=== PATIENT | female | born 1990 | race Caucasian/White ===

== ENCOUNTER 2024-10-18 10:21 | Outpatient (AMB) | payer BC, SELFPAY ==
--- NOTE | 2024-10-18 10:33 | AMB.GYNCLNOT ---
Vital Signs 10/18/24 10:34 Height 1.7 m Height Method Measured Weight 118.047 kg Weight Measurement Method Standing Scale BMI 40.7 BP 150/97 H Blood Pressure Source Automatic Cuff Blood Pressure Location Right Lower Arm Position Sitting Respiration 17 Pulse 80 Pulse Source Monitor Temp 97.8 F Temp Source Temporal Artery Scan Pulse Oximetry (%) 98 Oxygen Delivery Method Room Air Allergies/Home Meds Allergies & Medications Allergies amoxicillin Allergy (Verified 10/18/24 10:36) Medication Reconciliation clobetasol 0.05 % topical ointment 1 applic topical QHS 4 weeks #60 grams 10/21/24 [Rx] fluconazole 150 mg tablet 150 mg PO QWEEK 6 weeks #6 tabs 10/21/24 [Rx] Intake Visit Data Collection New Patient or Established: New Patient (never been to [facility]) 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 Consent obtained for Telemed Visit: No Seen by Clinical Staff ONLY (RN/MA): No Edge Trimmer Required: No Do You Feel Safe at Home: Yes Authorities Contacted: N/A PCP or OBGYN visit in last 3 months: No Hx Now: No Are you currently on any form of Control: No Last menstrual period: 08/27/24 Pain Present Currently: No Pain Scale Used: Welsh-[place]/Numerical Pain scale:: 0 Smoking Status Smoking Status: Never smoker 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 Was 318 pounds now 260 pounds. Current BMI of 41. PCOS per patient History of abnormal Pap per patient History of anxiety Questionnaires Covid-19 Vaccine Questionnaire Has patient been vacinated for Covid-19 Have you been vacinated for Covid-19: No PHQ-9 PHQ-2 Over the last 2 weeks, how often have you been bothered by any of the following problems? 1. Little interest or pleasure in doing things: not at all 2. Feeling down, depressed, or hopeless: not at all Total score: 0 PHQ-9 3. Trouble falling or staying asleep, or sleeping too much: Not at all 4. Feeling tired or having little energy: Not at all 5. Poor appetite or overeating: Not at all 6. Feeling bad about yourself - or that you are a failure or have let yourself or your family down: Not at all 7. Trouble concentrating on things, such as reading the newspaper or watching television: Not at all 8. Moving or speaking so slowly that other people could have noticed? - Or the opposite - being so fidgety or restless that you have been moving around a lot more than usual: not at all 9. Thoughts that you would be better off or of hurting yourself in some way: Not at all Total score: 0 If you checked off any problems, how difficult have these problems made it for you to do your work, take care of things at home, or get along with other people?: not difficult at all Source: Developed by Drs. Elder Patel, Yulia Lopez, Jose Martin Galeana and colleagues, with an educational marina from [employer]. Depression screen completed yes Social History Living Situation History Marital Status: Lives With: Family Housing: House Tobacco History Smoking Status: Never smoker Alcohol History Alcohol Intake: Never Domestic Abuse History Do You Feel Safe at Home: Yes History of Present Illness HPI Narrative The patient is a 34-year-old G0 presents as a new patient for an annual exam. She was to see Dr. Marcos in [place]. I have no records available to review today. She states that her vaginal area is always uncomfortable . She states that she had a bladder infection that lasted a long time. She was having some abdominal pain and went to the ER and the doctor put her on an antibiotic for an extended period of time. She does use baby wipes when she goes to the restroom. She states her bottom itches and li. They are not using anything for contraception but patient does not want to get . She declines control pills or other forms of contraception. She is not sure if she ever wants to have a baby. She is not sure if her does either. She was diagnosed with PCOS in high school. She states her last period was August 27 and lasted 6 days and that her cycles are irregular. She states her last Pap was in May 14. She states she did have an abnormal Pap in the past she did not elaborate and I do not have any records. She stated that she has lost weight with diet and exercise and she was 318 pounds, today she is today she is 260 pounds. She does have a family history of breast cancer in a maternal grandmother and a maternal great grandmother her mother does not have breast cancer. Patient states she has had a mammogram in the past and it was normal. Again I have no records. Menstrual character: irregular in timing Gynecologic pain symptoms: Reports other (Vaginal discomfort) Menopause concerns/symptoms: Reports none Other pertinent information: The patient states she has PCOS and always has irregular cycles. They are not heavy or painful. Review of Systems Review of Systems Narrative Review of Systems: The patient denies hot flashes or night sweats. She denies dysuria. She reports vaginal pain and discomfort. No specific itching. No discharge. No foul odor. She has irregular cycles and states she has since high school secondary to PCOS. Exam General Limitations: no limitations General Appearance: alert, in no apparent distress, comfortable, cooperative, well groomed and obese Neck Neck exam: Present normal inspection, full ROM and trachea midline Chest Chest inspection: Present normal inspection and symmetric chest wall rise Exp Chest Breast: bilateral: other (Normal breast exam bilaterally) Resp Respiratory exam: Present normal lung sounds bilaterally Card Cardiovascular exam: Present regular rate, normal rhythm and normal heart sounds Abdominal Abdominal exam: Present soft and normal bowel sounds External exam: Present normal external exam, erythema and other (Erythema around her labia majora) Speculum exam: Present normal speculum exam and vaginal discharge (White vaginal discharge noted with no odor) Bimanual exam: Present normal bimanual exam (Uterus midline, nontender, not enlarged. No adnexal masses are palpated.) Psych Psychiatric exam: Present normal affect and normal mood Skin Skin exam: Present warm, dry, intact and normal color Office Procedures OB Clinic LOC & Office Proc's Nursing/Assessment Patient Status: Initial/New Patient OB Clinic Nursing Assessment: Medication Reconciliation, Update PMH in EMR and Vital Signs OB Clinic Coordination of Care: Complex Care and Chronic Disease 1-5, Consent,records obtained, informed consent, Lab and Imaging orders and Staff clarify orders New Patient Charge New Patient Point Assignment: [id number] New Patient Point Charge: HYDRAULIC DESIGN ENGINEER Level 3 ([id number]) In Clinic Procedures Pap Smear: Yes Assessment & Plan Diagnosis / Problem List (1) Encounter for Routine Gynecological Examination: Qualifiers: Gynecological examination findings: abnormal findings ABSENT Qualified Code(s): Z01.419 - Encounter for gynecological examination (general) (routine) without abnormal findings Assessment and Plan: Pap high risk HPV performed breast exam done and encouraged (2) Yeast vaginitis: Status: Acute Assessment and Plan: Diflucan 150 mg p.o. x 1 with about 12 refills given (3) Lichen sclerosus of vulva: Status: Acute Assessment and Plan: Clobetasol ointment to vulva encourage deep crease or complete cessation of use of baby wipes or other types of vaginal cleaning products besides soap and water once a day. Discouraged use of pantiliners daily. (4) Morbid obesity with BMI of 40.0-44.9, adult: Status: Acute Assessment and Plan: Encourage patient to continue to exercise and diet in order to lose weight. (5) History of PCOS: Status: Acute Assessment and Plan: Check labs and ultrasound. Patient with irregular cycles. Offered control pills she declined. I told the patient she must withdraw on progesterone at least every 4 months and patient states she will call if she is not having a period every 4 months. She will follow-up yearly or as needed. (6) Pelvic pain: Status: Acute Assessment and Plan: Check pelvic ultrasound SIGN LETTERER: Papsmear Pap Smear Procedure [place] in room during procedure?: No Pre-op diagnosis general: Annual wellness exam Post-op diagnosis procedure note: Same Procedure Notes:: Pap with high-risk HPV performed Papsmear completed: yes
[2024-10-18 10:34] VITALS: BP 150/97; PULSE 80; RESP 17; TEMP 36.6; O2SAT 98; BMI 40.7
== END 2024-10-18 11:11 | disposition home or self-care (01) ==
PROVIDERS: Supervising Provider Obstetrics & Gynecology; Visit Provider Obstetrics & Gynecology
DX: Z01.411 Encounter for gynecological examination (general) (routine) with abnormal findings (principal); Z11.51 Encounter for screening for human papillomavirus (HPV); B37.31 Acute candidiasis of vulva and vagina; N90.4 Leukoplakia of vulva
CPT/HCPCS: 99203; Q0091; G0463

== ENCOUNTER 2024-11-10 11:09 | Outpatient (AMB) | payer BC, SELFPAY ==
[2024-11-10 11:26] VITALS: BP 143/95; PULSE 71; RESP 17; TEMP 36.6; O2SAT 97; BMI 40.8
--- NOTE | 2024-11-10 11:26 | AMB.GYNCLNOT ---
Vital Signs 11/10/24 11:26 Height 1.7 m Height Method Measured Weight 118.161 kg Weight Measurement Method Standing Scale BMI 40.8 BP 143/95 H Blood Pressure Source Automatic Cuff Blood Pressure Location Right Upper Arm Position Sitting Respiration 17 Pulse 71 Pulse Source Monitor Temp 97.9 F Temp Source Temporal Artery Scan Pulse Oximetry (%) 97 Oxygen Delivery Method Room Air Allergies/Home Meds Allergies & Medications Allergies amoxicillin Allergy (Verified 11/10/24 11:27) Medication Reconciliation clobetasol 0.05 % topical ointment 1 applic topical QHS 4 weeks #60 grams 10/21/24 [Rx Confirmed 11/10/24] fluconazole 150 mg tablet 150 mg PO QWEEK 6 weeks #6 tabs 10/21/24 [Rx Confirmed 11/10/24] Intake Visit Data Collection New Patient or Established: Established Patient (seen at 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 1. Little interest or pleasure in doing things: not at all PHQ-9 8. Moving or speaking so slowly that other people could have noticed? - Or the opposite - being so fidgety or restless that you have been moving around a lot more than usual: not at all Source: Developed by Drs. Elder Patel, Yulia Lopez, Jose Martin Galeana and colleagues, with an educational marina from [employer]. Social History Living Situation History Lives With: Family Housing: House Tobacco History Smoking Status: Never smoker Alcohol History Alcohol Intake: Never Domestic Abuse History Do You Feel Safe at Home: Yes History of Present Illness HPI Narrative The patient is a 34-year-old G0 presents to discuss her recent lab work and ultrasound. The patient was having some pelvic pain when I saw her for an annual exam 10/18/2024. I did perform a Pap with HPV testing on 10/18/2024. It is positive for low-grade TOVA and positive for HPV high-grade. Her gonorrhea and Chlamydia were negative. I also checked an ultrasound of her abdomen which is normal and reviewed with her today this result from [facility] 11/02/2024 we additionally checked a pelvic ultrasound which was performed the same day that was normal. Patient is a very anxious patient. She has not working right now. She is trying to exercise. She states she was on antianxiety medications for many years. She was on Lexapro. She is off this now. She states sometimes she would be so panicked that she would have to go out from the store and in her car. Patient states Dr. Marcos did a colposcopy and biopsy in August 2023. She does not have the results. She is going to follow-up with her records from [facility]. She is willing to have a colposcopy again if she needs to. She has never had cryotherapy or a LEEP performed. She is currently not sexually active often with her and is not planning anytime soon. Results Objective Laboratory: Pap from [facility] 10/18/2024 reported 10/22/2024 reveals low-grade TOVA HPV mRNA E6\C7 detected GC chlamydia negative Imaging: [facility] open [facility] 11/02/2024 normal pelvic anatomy normal abdominal ultrasound uterus 8 x 4 x 6 cm endometrium 1.1 cm right and left ovary both within normal limits both measuring 4 x 3 x 3 cm no cysts no fibroids. These reports will be scanned into the computer. Office Procedures OB Clinic LOC & Office Proc's Nursing/Assessment Patient Status: Established Patient OB Clinic Nursing Assessment: Medication Reconciliation, Update PMH in EMR and Vital Signs OB Clinic Coordination of Care: Complex Care and Chronic Disease 1-5, Consent,records obtained, informed consent, Education Simp Pt/Fam and 4+ Authorizations needed Established Patient Charge Established Patient Point Assignment: 100 Established Patient Point Charge: EP Level 3 (80-115) Assessment & Plan Diagnosis / Problem List (1) LGSIL (low grade squamous intraepithelial dysplasia): Status: Acute Assessment and Plan: Patient states she had an abnormal Pap about a year ago which was an ASCUS with HPV, Dr. Marcos did a biopsy she is not aware of her results. She might need another colposcopy with biopsies. We will call her for follow-up in about a month. Patient should release her records from [facility].
== END 2024-11-10 12:06 | disposition home or self-care (01) ==
LOC: HODSOBC 11:09
PROVIDERS: Supervising Provider Obstetrics & Gynecology; Visit Provider Obstetrics & Gynecology
DX: R87.612 Low grade squamous intraepithelial lesion on cytologic smear of cervix (LGSIL) (principal)
CPT/HCPCS: 99213; G0463